=== PATIENT | female | born 1980 | race Caucasian/White ===

== ENCOUNTER 2023-05-27 14:25 | Emergency (ER) | payer SELFPAY ==
[2023-05-27] MEDS ORDERED: Fioricet 325/50/40 mg Tablet PO SCH (17:30)
== END 2023-05-27 17:52 | disposition home or self-care (01) ==
LOC: CSHERS 14:25
DX: R51.9 Headache, unspecified (principal)
CPT/HCPCS: 99283

== ENCOUNTER 2023-06-06 09:55 | Outpatient (CLI) | payer OTHER | END 2023-06-06 09:56 | disposition home or self-care (01) | LOC: CSHMRI 09:55 | PROVIDERS: ATTEND Family Medicine | DX: M47.812 Spondylosis without myelopathy or radiculopathy, cervical region (principal) | CPT/HCPCS: 72141 ==